=== PATIENT | male | born 1960 | race African-American/Black ===

== ENCOUNTER 2018-12-24 14:40 | Emergency (ER) | payer OTHER, SELFPAY ==
[2018-12-24] VITALS (46 sets, daily range): BP systolic 107–140; BP diastolic 75–102; PULSE 116–139; RESP 15–26; TEMP 36.5–36.7; O2SAT 94–98
--- NOTE | 2018-12-24 14:47 | DI.RAD_ITS ---
EXAM: XR PORTABLE CHEST AP CLINICAL HISTORY: chest pain. TECHNIQUE: 2D digital imaging was performed. COMPARISON: CHEST 2 VIEWS PA,LAT from 01/26/2017 FINDINGS: LUNGS: There are linear lung markings in the bases bilaterally. These appear similar compared to the prior examination. No focal consolidating infiltrates are seen. No pleural effusion or pneumothora x is identified. HEART: Normal. MEDIASTINUM: The pulmonary vasculature appears stable and within normal limits. OTHER FINDINGS: Degenerative changes are present in the spine. IMPRESSION: No acute pulmonary findings.
[2018-12-24] MEDS: Normal Saline 1,000 ML 1000 ML IV (14:59)
--- NOTE | 2018-12-24 15:00 | ED.GENADUL_ITS ---
Discharge Plan Disposition Patient Disposition: HOME Condition: Stable Discharge Details Chief Complaint: Chest Pain Clinical Impression: Chest pain Primary Care Provider: Dhara,Local ED Provider: Shreyas Bray Home Meds and New Rx's Prescriptions: Continued aspirin [Aspir-81] 81 MG tablet,delayed release (DR/EC) 81 mg PO DAILY RF: 0 metformin 500 MG tablet 500 mg PO BID RF: 0 glipizide 10 mg Tablet 10 mg PO DAILY RF: 0 nortriptyline 25 mg Capsule 25 mg PO DAILY RF: 0 pantoprazole 40 mg Tablet,Delayed Release (Dr/Ec) 40 mg PO DAILY RF: 0 simvastatin 20 mg Tablet 20 mg PO DAILY RF: 0 naproxen 500 mg Tablet 500 mg PO BID RF: 0 metoprolol succinate 100 mg Capsule,Sprinkle,Er 24hr 100 mg PO DAILY RF: 0 Discharge Instructions Instructions: Chest Pain (ED) Medical Decision Making 58 yo male with hx of DM comes in with chief complaint of chest pain. It started while he was in court and described as aching in anterior chest that was nonradiating. Denies dyspnae, diaphoresis, n/v. He arrives in no pain currently. He has no pedal edema or calf pain. Denies any known cardiac history. Heart score is 3, will send troponin. WEll sscore is low, will send d dimer. No tearing back pain and normal vascular exam so doubt dissection. Normal lung sounds, no cough or pleuritic pain so doubt ptx or pna at this time. He is feeling anxious and has HR of 130's, will treat with ativan and reassess pt has remained at 130-140 despite IVF and ativan. Could be aflutter, will try metoprolol pt's hr now 110-120 and ekg shows sinus rhythm. No other symptoms otherwise, remains stable, awaiting second troponin 2nd troponin negative, HR 110 sinus, apparently never had his oral dose of metoropolol today. Given no symptoms now and low heart score feel he can be d/c'd, return precautions given Differential Diagnosis Differential Diagnosis: acs, pe, dissection, anxiety Medical Records Medical records reviewed: Yes I reviewed the patient's medical records. Imaging Data Radiologic Study: Attestation: I personally reviewed and interpreted this imaging study as follows: Imaging: X-Ray Radiologist's impression: no acute findings Lab Data Lab results reviewed: Yes I reviewed the patient's lab results. ECG Data Attestation: I personally reviewed and interpreted this ECG (s) as follows: Prior ECG tracings: not available for review Interpretation: sinus tachycardia, rate of 140, qtc 528 2nd ekg shows sinus tachycardia, rate of 120, pr 96 HPI General Mode of arrival: EMS . Date/Time Provider Initiated Documentation: 12/24/18 14:45 . Limitations to Documentation: no limitations . Information obtained by: patient . History of Present Illness 58 year old M presents to the emergency department with the chief complaint of chest pain, described as moderate, Quality is described as aching, and is localized to the chest. Patient reports no radiation. Patient started experiencing this hour(s) (1) and it has been now resolved. No relieving factors improve symptom(s), No exacerbating factors reported . Patient did receive the following treatments prior to arrival, none Related Data Home Medications Medication Instructions Recorded Confirmed aspirin [Aspir-81] 81 mg PO DAILY 12/16/16 12/24/18 metformin 500 mg PO BID 01/26/17 12/24/18 glipizide 10 mg PO DAILY 12/24/18 12/24/18 metoprolol succinate 100 mg PO DAILY 12/24/18 12/24/18 naproxen 500 mg PO BID 12/24/18 12/24/18 nortriptyline 25 mg PO DAILY 12/24/18 12/24/18 pantoprazole 40 mg PO DAILY 12/24/18 12/24/18 simvastatin 20 mg PO DAILY 12/24/18 12/24/18 Allergies Allergy/AdvReac Type Severity Reaction Status Date / Time No Known Allergies Allergy Unverified 12/24/18 14:48 General Stated Complaint: Chest Pain KADEEM: 2 Review of Systems Review of Systems ROS Unobtainable: All systems reviewed & are unremarkable except as noted in HPI and below Constitutional Constitutional: Denies chills, Denies fever(s) and Denies weakness ENT Ears, Nose, Mouth, and Throat: Denies change in voice Cardiovascular Cardiovascular: Denies dyspnea Respiratory Respiratory: Denies cough and Denies dyspnea Gastrointestinal Gastrointestinal: Denies abdominal pain, Denies nausea and Denies vomiting Musculoskeletal Musculoskeletal: Denies joint swelling Integumentary/Breasts Skin/Breast: Denies rash Neurologic Neurologic: Denies weakness Psychiatric Psychiatric: Denies depression [facility] Social History (System 12/25/17 @ 09:40 by Adriana Wolf) Smoking/Tobacco Use Status: Former Tobacco Use Alcohol Intake: never Substance use type: does not use Do you feel safe in your relationship?: Yes Exam Const General: no acute distress Orientation: alert HENMT Head: normal to inspection Ears: external ears normal General nose exam: external nose normal Mouth: moist mucous membranes Eyes General: appearance normal, both eyes and all related structures Neck Neck: normal visual inspection Resp Effort & Inspection: normal respiratory effort and able to speak in complete sentences Cardio Rate: regular rate Skin General skin exam: no rashes or lesions noted Neuro General: alert and oriented x3 Extrem General: normal to inspection Psych Mental Status: mental status grossly normal Course Vital Signs Vital signs: Vital Signs Temperature 36.5 C 12/24/18 14:41 Pulse 139 H 12/24/18 14:41 Respiratory Rate 18 12/24/18 14:41 Pulse Oximetry 98 12/24/18 14:41 Temperature 36.5 C 12/24/18 14:41 Pulse 139 H 12/24/18 14:41 Respiratory Rate 18 12/24/18 14:41 Pulse Oximetry 98 12/24/18 14:41 Oxygen Delivery Method Room Air 12/24/18 14:41 Oxygen Flow Rate 0 12/24/18 14:41 Pain Level 0 12/24/18 14:41
[2018-12-24 15:02] LABS: Abs Immature Grans 0.01 k/cumm (0.0-0.09); Absolute Basophil Count 0.01 k/cumm (0.0-0.2); Absolute Eosinophil Count 0.07 k/cumm (0.0-0.7); Absolute Lymphocyte Count 1.78 k/cumm (1.2-3.4); Absolute Monocyte Count 0.53 k/cumm (0.11-0.7); Absolute Neutrophil Count 2.96 k/cumm (1.2-6.7); Basophils % 0.2; Eosinophils % 1.3; HCT 36.3 % (40.0-50.0); HGB 11.9 g/dL (13.5-17.5); Immature Grans % 0.2; Lymphocytes % 33.2; Mean Corp. HGB Concentration 32.8 g/dL (32.0-36.0); Mean Corpuscular Volume 94.5 fL (80-95); Mean Platelet Volume 11.4 fL (8.0-11.0); Monocytes % 9.9; Neutrophils % 55.2; Platelet Count 276 x1000/uL (130-400); RBC 3.84 m/cumm (4.50-6.00); RBC Distribution Width 11.8 % (11.8-14.1); White Blood Cell Count 5.36 k/cumm (4.4-10.8)
[2018-12-24 15:22] LABS: ALT 41 U/L (16-63); AST 27 U/L (15-37); Albumin 3.6 g/dL (3.4-5.0); Alkaline Phosphatase 72 U/L (46-116); Anion Gap 10.3 mmol/L (3-11); BUN 7 mg/dL (7-18); Bilirubin, Total 0.3 mg/dL (0.2-1.0); CO2 25.7 mmol/L (21.0-32.0); CREATININE 1.08 mg/dL (0.70-1.30); Calcium 8.5 mg/dL (8.5-10.1); Chloride 100 mmol/L (98-107); Glucose 496 mg/dL (70-100); Magnesium 1.6 mg/dL (1.8-2.4); NT-proBNP 97 pg/mL; Potassium 4.2 mmol/L (3.5-5.1); Sodium 136 mmol/L (136-145); Total Protein 7.4 g/dL (6.4-8.2)
[2018-12-24 15:24] LABS: Troponin I < 0.05 ng/mL (0.00-0.06)
[2018-12-24] MEDS: LORazepam 2 MG/ML VIAL 1 MG IVP (15:38)
[2018-12-24 15:57] LABS: D-Dimer 551 ng/mlFEU (<500)
[2018-12-24] MEDS: Metoprolol 5 MG/5 ML VIAL IVP (16:18)
--- NOTE | 2018-12-24 17:30 | NUR.NOTE ---
pt provided with food tray tolorating po intake denies pain no symtoms at this time no distrss noted none stated Nursing Note:
[2018-12-24 18:42] LABS: Troponin I < 0.05 ng/mL (0.00-0.06)
[2018-12-24] MEDS: Metoprolol CR 100 MG TABCR PO (19:03)
--- NOTE | 2018-12-24 19:03 | NUR.NOTE ---
pt dc into [facility] Nursing Note:
== END 2018-12-24 18:57 | disposition home or self-care (01) ==
PROVIDERS: Student in an Organized Health Care Education/Training Program; Emergency Provider Emergency Medicine
DX: R07.9 Chest pain, unspecified (principal); E11.9 Type 2 diabetes mellitus without complications; Z79.84 Long term (current) use of oral hypoglycemic drugs
CPT/HCPCS: 36415; 80053; 93005; 96361; 96374; 96375; 99285; 71045; 83735; 83880; 84484; 85025; 85379; 93010; J2060